=== PATIENT | male | born 1945 | race Caucasian/White ===

== ENCOUNTER → 2017-11-01 10:49 | Outpatient (CLI) | payer MEDICARE, BC, SELFPAY ==
--- NOTE | 2017-11-01 10:54 | RAD_ITS ---
STUDY: X-RAY CHEST REASON FOR EXAM: Male, 72 years old. Fever and cough TECHNIQUE: 2 PA and lateral views of the chest. COMPARISON: 08/13/2017 FINDINGS: Previously described opacifications in the right lung have cleared Lungs are hyperexpanded with chronic interstitial changes, no superimposed acute pulmonary process. There is no demonstrated pleural abnormality. Normal size heart. Normal mediastinum and daquan. Normal visualized pulmonary arteries. Normal visualized aortic arch and descending thoracic aorta. Normal visualized thoracic spine. Normal visualized ribs, clavicles, and shoulders. There is no demonstrated abnormality of the visualized soft tissue structures of the upper abdomen. RAD/Chest PA and Lateral IMPRESSION: Normal x-ray examination of the chest. Electronically Signed: Newton Briones MD at 10:30 EDT , Service support ,
== END ==
PROVIDERS: Family Provider Internal Medicine; PCP Internal Medicine; Visit Provider Internal Medicine
DX: R93.8 Abnormal findings on diagnostic imaging of other specified body structures (principal)
CPT/HCPCS: 71046

== ENCOUNTER → 2017-12-09 16:11 | Outpatient (CLI) | payer MEDICARE, BC, SELFPAY ==
--- NOTE | 2017-12-09 12:10 | COLBX_PTH ---
PATIENT: ENOCH LOUISE LOC: [facility] U#:[id number] AGE/SX: 80/M ROOM: RE12/09/[address]: Dr. Attila Gallagher MD : 1945 BED: DIS: SPEC #: [id number] RECD: 12/09/17 14:57 STATUS: REN JIMBO #: [id number] SUSAN: 12/09/17 12:[address]: Attila Gallagher DEPT: SURGICAL PATHOLOGY RECD BY: Kierra Robb ENTERED: 12/10/17 07:46 SP TYPE: COLON BX OTHR DR: Dr. Uyen Rey, [facility] Tissues: A - Rectum, NOS B - Colon, NOS Procedures: Surgery Specimen Level IV HEADER OPERATION: Colonoscopy with polypectomy PRE-OP DIAGNOSIS: Positive Cologuard TISSUE SUBMITTED: A ? Rectal polyp, rule out adenoma, B ? 15 cm polyp, rule out adenoma MICROSCOPIC DIAGNOSIS A. Rectal polyp, polypectomy: Fragments of tubulovillous adenoma. B. Colon, 15 cm polyp, polypectomy: Tubulovillous adenoma with focal high-grade dysplasia, completely excised. See comment. DARIANA:nancy 12/10/17 COMMENT B. High-grade dysplastic changes are noted at the luminal surface of the polyp. Correlation with clinical, endoscopic findings and appropriate follow up are necessary. MICROSCOPIC DESCRIPTION Slides are reviewed. GROSS DESCRIPTION A - Received in fixative is one container labeled with the patient's name and designated rectal polyp. The specimen consists of a piece of smith-pink polyp measuring 0.7 x 0.6 x 0.4 cm. Also present in the container are multiple pieces of brownish-smith tissue that in aggregate measure 0.3 x 0.3 x 0.1 cm. The specimen is totally submitted in one cassette. B - Received in fixative is one container labeled with the patient's name and designated 15 cm polyp. The specimen consists of a pink-red polyp measuring 2.5 x 1.5 x 1.4 cm. The apparent base is inked. The polyp is serially sectioned and submitted entirely in two cassettes. / DARIANA:nancy 12/09/17 TC:1 CPT: 16946 x2
== END ==
PROVIDERS: Family Provider Internal Medicine; PCP Internal Medicine; Visit Provider Internal Medicine Gastroenterology
DX: K62.1 Rectal polyp (principal); D12.6 Benign neoplasm of colon, unspecified
CPT/HCPCS: 88305

== ENCOUNTER → 2018-08-29 07:39 | Outpatient (CLI) | payer MEDICARE, BC, SELFPAY ==
--- NOTE | 2018-08-29 07:49 | CT_ITS ---
STUDY: CT ABDOMEN AND PELVIS WITH CONTRAST REASON FOR EXAM: Male, 73 years old. Abdominal bloating. RADIATION DOSAGE (If Supplied By Facility): CTDIvol = ( 15.32 ) mGy, DLP = ( 1471.87 ) mGycm TECHNIQUE: Transaxial images were obtained from the dome of the diaphragm to the symphysis pubis with oral contrast. 100 ml of Isovue 300 contrast was administered. Sagittal and coronal images were reconstructed. Individualized dose optimization techniques were used for this CT. COMPARISON: None. FINDINGS: The visualized lung bases are unremarkable. The visualized portions of the heart are within normal limits. 3 mm hypodensity in segment 8 of the liver, thought to represent a small cyst. There is no evidence of enhancing mass. Normal gallbladder and extrahepatic biliary system. There is a 1.8 cm cyst in the anterior aspect of an otherwise normal spleen. Normal pancreas. Normal bilateral adrenal glands. Normal right kidney. Normal right ureter. There is a 3.7 x 2.9 x 2.5 cm cyst in the mid left kidney. There is a smaller cortical cyst in the upper pole measuring 7 mm. Extending off the lower pole is a cyst measuring 8.2 x 6.4 x 6.4 cm. This appears to contain a thin internal septation. There is no renal calculi or hydronephrosis. Normal left ureter. Normal visualized stomach. Normal small intestine. There is colonic diverticulosis most marked in the descending and sigmoid colon without acute inflammatory change. The appendix is visualized and appears normal. There is diffuse atherosclerotic calcification of the abdominal aorta, without a demonstrated aneurysm. Normal inferior vena cava. Normal retroperitoneum. Normal urinary bladder. The prostate is mildly enlarged with central calcifications. There is no pelvic lymphadenopathy. No free air or free fluid is seen within the peritoneal cavity. There is a very small umbilical hernia of omental fat. The abdominal wall is otherwise unremarkable. There are diffuse degenerative changes of the visualized lumbar spine. CT/Abdomen/Pelvis WITH Contrast IMPRESSION: 1. No evidence of obstruction or dilatation of the bowel. 2. Colonic diverticulosis without acute inflammatory change. 3. Hepatic, splenic and renal cysts. 4. Mildly enlarged prostate. 5. Atherosclerotic changes of the aorta. 6. Mild degenerative changes of the lumbar spine. Electronically Signed: Reynaldo Ordonez DO at 17:38 EST Tel [phone], Service support ,
[2018-08-29 08:01] LABS: CREATININE FINGERSTICK 0.8 mg/dL (0.70-1.30); EGFR FINGERSTICK > 60.0000 mL/min (>60)
== END ==
PROVIDERS: Family Provider Internal Medicine; PCP Internal Medicine; Referring Provider Internal Medicine; Visit Provider Internal Medicine
DX: R14.0 Abdominal distension (gaseous) (principal)
CPT/HCPCS: 74177; Q9967

== ENCOUNTER → 2019-09-23 12:54 | Outpatient (CLI) | payer MEDICARE, BC, SELFPAY ==
--- NOTE | 2019-09-23 12:59 | ECHOD_ITS ---
Reason For Study: Chest Heaviness Procedure This was a 2D Doppler, Color Flow transthoracic echocardiogram. Exam performed in department. Left Ventricle Normal size and thickness. The estimated ejection fraction is 65 %. Stage 1 diastolic dysfunction. No regional wall motion abnormalities noted. Right Ventricle Normal size and thickness. Normal systolic function. Atria Normal left atrium. Normal right atrium. Normal atrial septum. Mitral Valve The mitral valve is structurally normal. No prolapse or stenosis seen. Tricuspid Valve Normal tricuspid valve. Trivial tricuspid valve insufficiency. Unable to estimate RV systolic pressure due to insufficient tricuspid regurgitant envelope. Aortic Valve Normal aortic valve. Trisinus/trileaflet aortic valve. Pulmonic Valve Normal pulmonic valve. Great Vessels Normal aortic root. Normal arch. Normal inferior vena cava. Inferior vena cava collapse with sniff. Pericardium/Pleural No pericardial effusion. MMode/2D Measurements & Calculations LVIDd: 4.8 cm IVSd: 0.82 cm LA dimension: 3.5 cm LVIDs: 2.4 cm LVPWd: 0.85 cm FS: 49.5 % LAV(MOD-bp): 43.4 ml LA A4 area: 16.8 cm2 RA A4 area: 13.2 cm2 LAV(MOD-sp2): 37.1 ml LAV(MOD-sp4): 41.0 ml Time Measurements MV dec time: 0.25 sec Doppler Measurements & Calculations MV E max sonny: 56.3 cm/sec Lat Peak E' Sonny: 7.6 cm/sec Med Peak E' Sonny: 5.8 cm/sec MV A max sonny: 79.4 cm/sec E/E' lat: 7.4 E/E' med: 9.7 MV E/A: 0.71 MV V2 max: 82.8 cm/sec MV P1/2t max sonny: 64.7 cm/sec Ao V2 max: 124.6 cm/sec MV max P.7 mmHg MV P1/2t: 93.4 msec Ao max P.2 mmHg MV V2 mean: 50.6 cm/sec Ao V2 mean: 81.8 cm/sec MV mean P.2 mmHg MV dec slope: 202.9 cm/sec2 Ao mean P.1 mmHg MV V2 VTI: 21.1 cm MVA(P1/2t): 2.4 cm2 Ao V2 VTI: 22.7 cm LV V1 max: 110.7 cm/sec PA V2 max: 102.1 cm/sec LV V1 max P.9 mmHg LV V1 mean P.2 mmHg LV V1 mean: 68.0 cm/sec LV V1 VTI: 21.5 cm Interpretation Summary The estimated ejection fraction is 65 %. Stage 1 diastolic dysfunction. Trivial tricuspid valve insufficiency. Unable to estimate RV systolic pressure due to insufficient tricuspid regurgitant envelope. Compared to echo report dated 03/07/2015, no appreciable changes noted. Ordering Physician: Uyen Rey Referring Physician: Uyen Rey Performed By: William Saunders RCS
== END ==
PROVIDERS: PCP Internal Medicine; Referring Provider Internal Medicine; Visit Provider Internal Medicine
DX: R07.89 Other chest pain (principal)
CPT/HCPCS: 93306

== ENCOUNTER → 2020-02-19 10:45 | Outpatient (CLI) | payer MEDICARE, BC, SELFPAY ==
--- NOTE | 2020-02-19 10:48 | RAD_ITS ---
STUDY: X-RAY - PELVIS AND RIGHT HIP REASON FOR EXAM: Male, 74 years old. WEIGHTBEARING PAIN, TECHNIQUE: Three views of the pelvis and hip. COMPARISON: None. FINDINGS: There is a non-specific bowel gas pattern. Normal visualized soft tissue structures. There is diffuse demineralization of the osseous structures. There is narrowing with cortical sclerosis and osteophyte formation of the sacroiliac joint consistent with degenerative osteoarthritic changes. Normal bilateral superior and inferior pubic rami. Normal pubic symphysis. Normal bilateral ischial tuberosities. Normal visualized femoral head. Normal acetabulum. There is moderate articular joint space narrowing of the hip. RAD/HIP, UNI W/ Pelvis 2-3 Views IMPRESSION: Demineralization of the osseous structures with age consistent hip and SI joint arthrosis. No demonstrated fracture. However, hip and pelvic fractures in patients of this age can be subtle, if there are strong clinical suspicion of a fracture, recommend further evaluation with CT Electronically Signed: Newton Briones MD at 12:08 EDT , Service support ,
== END ==
PROVIDERS: PCP Internal Medicine; Referring Provider Internal Medicine; Visit Provider Internal Medicine
DX: M25.551 Pain in right hip (principal)
CPT/HCPCS: 73502

== ENCOUNTER 2020-10-04 09:00 | Outpatient (RCR) | payer MEDICARE, SELFPAY ==
[2020-10-04] MEDS: COVID-19 VACC, MRNA(PFIZER)/PF 30 MCG/0.3 ML SYRINGE IM (07:44)
[2020-10-25] MEDS: COVID-19 VACC, MRNA(PFIZER)/PF 30 MCG/0.3 ML SYRINGE IM (07:31)
== END 2021-01-03 23:59 ==
LOC: IMMUN 09:00
PROVIDERS: PCP Internal Medicine; Visit Provider Family Medicine
DX: Z23 Encounter for immunization (principal)
CPT/HCPCS: 0001A; 0002A; 91300